=== PATIENT | male | born 1950 | race Caucasian/White ===

== ENCOUNTER → 2018-02-11 10:19 | Outpatient (CLI) | payer MEDICARE, SELFPAY ==
[2018-02-11 12:42] LABS: ALB/GLOB Ratio 1.2 RATIO (0.9-2.4); AST(SGOT) 30 U/L (15-37); Alanine Aminotransfer ALT/SGPT 36 U/L (16-61); Albumin, Serum 3.8 g/dL (3.2-5.0); Alkaline Phosphatase 54 U/L (45-117); Anion Gap 5 (5-15); BUN 24 mg/dL (7-18); BUN/Creat Ratio 40.8 RATIO (10-20); Calcium,Total 8.6 mg/dL (8.5-10.1); Chloride 109 mmol/L (98-107); Creatinine, Serum 0.59 mg/dL (0.70-1.30); EST Glomerular Filtration Rate 146 mL/min (>60); Est Glom Filt Rate - Afr Amer 176 mL/min (>60); Globulin 3.3 g/dL (2.2-4.2); Glucose 86 mg/dL (74-106); Potassium 3.4 mmol/L (3.5-5.1); Protein, Total 7.1 g/dL (6.4-8.2); Sodium Level 144 mmol/L (136-145)
== END ==
PROVIDERS: Family Provider Family Medicine; PCP Family Medicine; Visit Provider Family Medicine
DX: I10 Essential (primary) hypertension (principal); M81.0 Age-related osteoporosis without current pathological fracture
CPT/HCPCS: 36415; 80053; 82306

== ENCOUNTER → 2018-02-17 10:40 | Outpatient (CLI) | payer MEDICARE, SELFPAY ==
--- NOTE | 2018-02-17 10:50 | BD_ITS ---
STUDY: DUAL ENERGY X-RAY ABSORPTIOMETRY / DXA REASON FOR EXAM: Male, 67 years old. History of prostate cancer. TECHNIQUE: Bone Mineral Density (BMD) measurements of lumbar spine and bilateral hips were obtained. COMPARISON: None. FINDINGS: Lumbar Spine (L1-L4): g/cm2 (0.946) / T-score (-2.5) / Z-score (-2.0) Findings are suggestive of osteoporosis with a high fracture risk. Left Femur Total: g/cm2 (0.522) / T-score (-4.0) / Z-score (-3.4) Left Femoral Neck: g/cm2 (0.566) / T-score (-3.9) / Z-score (-2.7) Right Femur Total: g/cm2 (0.512) / T-score (-4.1) / Z-score (-3.4) Right Femoral Neck: g/cm2 (0.52 6) / T-score (-4.2) / Z-score (-3.0) BD/Dexa Bone Density Study IMPRESSION: The patient is considered osteoporotic as outlined below according to World [employer] Organization (WHO) criteria with a high fracture risk. Reference Information: The T-score is the number of standard deviations above or below the standard which is normal for young adults at their peak bone mineral density. The World Health Organization (WHO) interprets the T-scores as follows: Above -1 Normal bone density Between -1 and -2.5 Osteopenia Equal to / or below -2.5 Osteoporosis As a practical clinical guideline, osteopenia may be graded as follows: Mild -1 through -1.5 Moderate -1.6 through -2.0 Severe -2.1 through -2.4 The Z-score is the number of standard deviations above or below age-matched controls. A Z-score of less than -1.5 would be considered abnormal. References: 1. NIH Osteoporosis and Related Bone Diseases http://www.osteo.org 2. International Society for Clinical Densitometry http://www.iscd.org 3. National Osteoporosis Foundation http://www.nof.org Electronically Signed: Michael Perez MD at 13:26 EDT Tel [phone], Service support ,
== END ==
PROVIDERS: Family Provider Family Medicine; PCP Family Medicine; Visit Provider Family Medicine
DX: M81.0 Age-related osteoporosis without current pathological fracture (principal); Z85.46 Personal history of malignant neoplasm of prostate
CPT/HCPCS: 77080

== ENCOUNTER → 2018-08-31 09:08 | Outpatient (CLI) | payer MEDICARE, SELFPAY ==
[2018-08-25 11:10] VITALS: BMI 21.9
[2018-08-31 13:01] LABS: Vitamin D,25 Hydroxy 56.7 ng/mL (29.95-100.01)
== END ==
PROVIDERS: Family Provider Family Medicine; PCP Family Medicine; Referring Provider Family Medicine; Visit Provider Family Medicine
DX: M81.0 Age-related osteoporosis without current pathological fracture (principal)
CPT/HCPCS: 36415; 82306

== ENCOUNTER 2018-10-20 06:51 | Day surgery (SDC) | payer MEDICARE, SELFPAY ==
[2018-08-25 11:10] VITALS: BMI 21.9
[2018-10-20 07:16] VITALS: BP 136/88; PULSE 90; RESP 16; TEMP 37.4; O2SAT 96; BMI 21.2
--- NOTE | 2018-10-20 08:18 | H&P.OPEN ---
History of Present Illness Date of Admission: 10/20/18 The patient is a 68 year old M here for screening colonoscopy. The patient reports that he has never had a colonoscopy in the past. He denies any weight loss or abdominal pain. He denies any blood in his stool. Past Medical/Surgical History - Planned Operation Planned Operative Procedure/s: cscope open access Date of Operative Procedure: 10/20/18 Permit Signed: No S.O.S: No Is This Patient Having a Total Joint: No - Previous Hospitalizations/Surgeries HX Hospitalizations: No HX of Surgeries: polio as child. bilat ankle stabalization as child. appendectomy. prostatectomy for cancer Any Problems With Anesthesia: No You/Your Family Experience Fever (Hyperthermia) With Anes: No Cholinesterase deficiency: No - Cardiovascular Hx Chest Pain within Last 2 months: No Hx of Irregular Heartbeat and/or Afib: No Hx Heart Attack: No Hx Congestive Heart Failure: No Hx Rheumatic Fever: No Hx Hypertension: Yes - controlled with med Hx Internal Defibrillator: No Hx Pacemaker: No Hx Cardiac Catheterization: No Hx Cardiac Surgery/Stents/Etc.: No Hx Stress Test: No HX Edema: Yes - ankles Hx Pain in Legs when Walking/Leg Cramps: Yes - Respiratory Chronic Cough: No HX of Shortness of Breath: No - unable to walk stairs/denies sob with exertion Hoarseness: No Hx Chronic Obstructive Pulmonary Disease (COPD): No Hx Asthma: No Hx Emphysema: No Hx Sleep Apnea: No Hx Oxygen Use at Home: No Hx Respiratory Tract Infection/Cold (presently): No Do You Snore Loudly (louder than talking or can be heard): Yes Do You Often Feel Tired/ Fatigued/ Sleepy Dring Daytime?: No Has Anyone Observed You Stop Breathing During Sleep?: Yes Result (for STOP score): Positive Hx Smoking: No Smoking Status: Never smoker - Gastrointestinal Hx Gastroesophageal Reflux: Yes Controlled With Meds: No - no meds Hx Gastrointestinal Disorders: No Hx Gastrointestinal Bleed: No Hx Ulcer: No Hx Hiatal Hernia: Yes Difficulty Chewing/Swallowing: No Recent Onset of Swallowing Problems: No Special diet followed at home: No Hx Unplanned Weight Loss of 20#: No HX Unplanned Weight Gain of 20#: No - Neurological Hx Seizures: No HX Syncope/Blackout Spells/Unconsciousness: Yes - syncope at times Hx CVA/Stroke: No Hx Transient Ischemic Attacks (TIA): No Hx Multiple Sclerosis: No - polio as child Hx Parkinson's Disease: No Hx Head/Neck Injury: No Hx Headaches: No Hx Back Injury/Pain: Yes - occ lower back pain Recent Onset of Speech Difficulty: No Restless Legs: No Does patient have nerve stimulator: No Patient instructed to have device shut off: No Rep notified?: No - Blood Disorder Hx Leukemia: No Bleeding Tendencies: Yes - easy bruising Hx Deep Vein Thrombosis: No Hx High Cholesterol: No Blood Transmitted Disease: No Hx Hepatitis: No Hx Cirrhosis: No Hx Anemia: No Hx Blood Disorders: No - Genitourinary Hx Renal Disease: No - hx prostate ca/prostatectomy - Musculoskeletal Hx Arthritis: Yes Hx Rheumatoid Arthritis: No Hx Gout: No Recent Onset of an Orthopedic Problem: No - Endocrine Hx Diabetes: No Thyroid Disease: No Hx Steroid Therapy: No - Psycho/Social Hx Substance Use: No Hx Alcohol Use: No Hx Anxiety: No Hx Depression: No Mental Illness: No Hx Dementia: No - Miscellaneous Hx Cancer: Yes - prostate Recent Exposure to Contagious Disease: No Active MRSA: No Hx of C-Diff: No Any Loose Teeth: No Allergies penicillin G Allergy (Severe, Verified 10/16/18 09:34) hives pentazocine [From Talwin] Adverse Reaction (Severe, Verified 10/16/18 09:34) dizziness - Discharge Is Pt Admitted From a Fpc, or a Assisted: No Who Could Help: Special Equipment Used at Home: walker After D/C, Where Do you Plan to Go: Return Home - From the PAT History Number of Risk Factors: 3 - Physical Exam General: Alert, Oriented x3 Lungs: Normal air movement Cardiovascular: Regular rate, Regular Rhythm Abdomen: Soft, Non Tender, Non-Distended Vital Signs Temp Pulse Resp BP Pulse Ox 99.4 F H 90 16 136/88 H 96 10/20/18 07:16 10/20/18 07:16 10/20/18 07:16 10/20/18 07:16 10/20/18 07:16 Oxygen Delivery Method Room Air Weight: 119 lb 14.903 oz Body Mass Index (BMI) 21.2 Assessment/Plan All Active Problems (Last Reviewed 08/25/18 @ 12:19 by Jamar Chance DO) History of prostate cancer (Acute) 68-year-old male for screening colonoscopy 1. I explained endoscopy in detail to the patient. I explained the risks including but not limited to stroke or heart attack with anesthesia, perforation of the GI tract, bleeding, infection. I explained that any of these could necessitate further emergency surgery. The patient understands and all questions were answered sufficiently. The patient wishes to proceed with procedure. Rodrigo Florez MD Pager: [facility] [address] [place] [address] [address] [place] [address] Office: Surgery Risks - Colonoscopy Risks Include but are not Limited To: Risks include but are not limited to: Bleeding, perforation requiring further surgery, inability to complete colonoscopy requiring barium enema.
[2018-10-20 08:21] VITALS: BP 121/78; BP 136/88; PULSE 74; RESP 18; TEMP 36.3; O2SAT 97
[2018-10-20 08:25] VITALS: BP 130/82; BP 136/88; PULSE 79; RESP 16; O2SAT 98
--- NOTE | 2018-10-20 08:25 | OP.ENDO_ITS ---
Patient Name: Yony Amin Procedure Date: 10/20/2018 7:33 AM Date of : 1950 Age: 68 Procedure: Colonoscopy Indications: Screening for colorectal malignant neoplasm Providers: Rodrigo Florez MD Referring MD: Jamar Chance Medicines: Monitored Anesthesia Care Patient Profile: This is a 68 year old male. Refer to note in patient chart for documentation of history and physical. Last Colonoscopy: none. The patient's first colonoscopy is today. Complications: No immediate complications. Procedure: Pre-Anesthesia Assessment: - Prior to the procedure, a History and Physical was performed, and patient medications and allergies were reviewed. The patient's tolerance of previous anesthesia was also reviewed. The risks and benefits of the procedure and the sedation options and risks were discussed with the patient. All questions were answered, and informed consent was obtained. Prior Anticoagulants: The patient has taken no previous anticoagulant or antiplatelet agents. After reviewing the risks and benefits, the patient was deemed in satisfactory condition to undergo the procedure. After I obtained informed consent, the scope was passed under direct vision. Throughout the procedure, the patient's blood pressure, pulse, and oxygen saturations were monitored continuously. The colonoscope was introduced through the anus and advanced to the cecum, identified by appendiceal orifice and ileocecal valve. The colonoscopy was performed without difficulty. The patient tolerated the procedure well. The quality of the bowel preparation was good. Scope In: 7:58:46 AM Scope Withdrawal Time 0 hours 6 minutes 5 seconds Scope Out: 8:17:37 AM Total Procedure Duration Time 0 hours 18 minutes 51 seconds Findings: Multiple small-mouthed diverticula were found in the left colon. The exam was otherwise without abnormality on direct and retroflexion views. Impression: - Diverticulosis in the left colon. - The examination was otherwise normal on direct and retroflexion views. - No specimens collected. Recommendation: - Discharge patient to home. - Resume previous diet. - Continue present medications. - Repeat colonoscopy is not recommended due to current age (66 years or older) for screening purposes. Procedure Code(s): --- Professional --- G0121, Colorectal cancer screening; colonoscopy on individual not meeting criteria for high risk Diagnosis Code(s): --- Professional --- Z12.11, Encounter for screening for malignant neoplasm of colon K57.30, Diverticulosis of large intestine without perforation or abscess without bleeding CPT copyright 2017 [employer]. All rights reserved. The codes documented in this report are preliminary and upon certified medical records coder review may be revised to meet current compliance requirements. Rodrigo Florez MD 10/20/2018 8:25:15 AM This report has been signed electronically. Number of Addenda: 0 Note Initiated On: 10/20/2018 7:33 AM
[2018-10-20 08:30] VITALS: BP 129/86; BP 136/88; PULSE 76; RESP 16; O2SAT 99
[2018-10-20 08:31] VITALS: BP 135/88; BP 136/88; PULSE 74; RESP 16; TEMP 36.2; O2SAT 98
[2018-10-20 08:52] VITALS: BP 136/88
== END 2018-10-20 09:22 | disposition home or self-care (01) ==
LOC: EN 06:51 → AC 06:53
PROVIDERS: Family Provider Family Medicine; PCP Family Medicine; Referring Provider Family Medicine; Visit Provider Surgery
PROC: 0DJD8ZZ Inspection of Lower Intestinal Tract, Via Natural or Artificial Opening Endoscopic (ICD-10-PCS; CPT 45378; principal; 2018-10-20 07:55)
DX: Z12.11 Encounter for screening for malignant neoplasm of colon (principal); K57.30 Diverticulosis of large intestine without perforation or abscess without bleeding; Z85.46 Personal history of malignant neoplasm of prostate; I10 Essential (primary) hypertension
CPT/HCPCS: G0121; J7120

== ENCOUNTER → 2019-03-02 09:00 | Outpatient (CLI) | payer MEDICARE, SELFPAY ==
[2019-03-02 08:39] VITALS: BMI 21.2
[2019-03-02 13:24] LABS: Anion Gap 6 (5-15); BUN 21 mg/dL (7-18); BUN/Creat Ratio 32.9 RATIO (10-20); Calcium,Total 8.8 mg/dL (8.5-10.1); Chloride 107 mmol/L (98-107); Creatinine, Serum 0.64 mg/dL (0.70-1.30); EST Glomerular Filtration Rate 132 mL/min (>60); Est Glom Filt Rate - Afr Amer 160 mL/min (>60); Glucose 95 mg/dL (74-106); Potassium 3.5 mmol/L (3.5-5.1); Sodium Level 140 mmol/L (136-145)
== END ==
PROVIDERS: PCP Family Medicine; Visit Provider Family Medicine
DX: I10 Essential (primary) hypertension (principal)
CPT/HCPCS: 36415; 80048

== ENCOUNTER 2019-04-28 18:16 | Emergency (ER) | payer MEDICARE, SELFPAY ==
[2019-04-21 08:46] VITALS: BMI 21.2
[2019-04-28 18:17] VITALS: BP 150/89; PULSE 68; RESP 18; TEMP 36.8; O2SAT 97; BMI 23.4
--- NOTE | 2019-04-28 18:45 | RAD_ITS ---
STUDY: X-RAY - RIGHT KNEE REASON FOR EXAM: Male, 68 years old. Bilateral knee pain after fall. History of polio. TECHNIQUE: 4 view(s) of the knee. COMPARISON: None. FINDINGS: There is generalized osteopenia. Normal visualized distal femur. Normal visualized proximal tibia and fibula. Normal proximal tibiofibular articulation. There is no acute fracture, dislocation or destructive osseous pathology. There is mild degenerative arthrosis of the medial femorotibial compartment. Normal lateral femorotibial compartment. There is mild degenerative arthrosis of the patellofemoral articulation. There is no demonstrated joint effusion. The soft tissue structures are unremarkable. RAD/Knee 4 or More Views IMPRESSION: Osteopenia and degenerative changes of the right knee. Electronically Signed: Nikolas Isaac DO at 19:52 EDT Tel [phone], Service support ,
--- NOTE | 2019-04-28 18:45 | CT_ITS ---
STUDY: CT BRAIN WITHOUT CONTRAST REASON FOR EXAM: Male, 68 years old. Fall. Injury to back of head. Neck pain. Patient on daily aspirin. RADIATION DOSAGE (If Supplied By Facility): CTDIvol = ( 44.99 ) mGy, DLP = ( 745.49 ) mGycm TECHNIQUE: Transaxial CT imaging of the brain was performed without administration of intravenous contrast material. Individualized dose optimization techniques were used for this CT. COMPARISON: No relevant priors. FINDINGS: Normal soft tissue structures. Normal calvarium. Normal size ventricles and extra-axial spaces for the patient's age. Normal white matter tracts of the cerebral hemispheres. Normal basal ganglia and thalami. Normal brainstem. Normal cerebellum. There is no intracranial hemorrhage. There are no findings of an acute ischemic infarction. Normal visualized paranasal sinuses. CT/Brain/Head without Contrast IMPRESSION: No acute intracranial or calvarial abnormality. Electronically Signed: Nikolas Isaac DO at 19:31 EDT Tel [phone], Service support ,
--- NOTE | 2019-04-28 18:45 | CT_ITS ---
STUDY: CT CERVICAL SPINE WITHOUT CONTRAST REASON FOR EXAM: Male, 68 years old. Fall. Hit back of head. Neck pain. RADIATION DOSAGE (If Supplied By Facility): CTDIvol = ( 17.13 ) mGy, DLP = ( 345.41 ) mGycm TECHNIQUE: High resolution transaxial imaging was performed without contrast material. Sagittal and coronal images were reconstructed. Individualized dose optimization techniques were used for this CT. COMPARISON: None FINDINGS: Normal craniovertebral junction. There are degenerative changes of the anterior atlantoaxial articulation. Normal odontoid process. There is reversal of the normal cervical lordosis. Normal vertebral bodies and posterior osseous elements. C2-3: Normal endplates. Minimal loss of disc height. Mild facet and uncovertebral joint degenerative change. Normal central canal and intervertebral neuroforamina. C3-4: Loss of disc height with endplate spondylosis. Facet and uncovertebral joint degenerative change. Normal central canal. There is narrowing of the bilateral intervertebral neuroforamina, left greater than right. C4-5: Minimal endplate spondylosis. Normal disc height and morphology. Normal central canal and intervertebral neuroforamina. C5-6: Loss of disc height with endplate spondylosis Normal central canal and intervertebral neuroforamina. C6-7: Loss of disc height with endplate spondylosis. There is facet and uncovertebral joint degenerative change. Stenosis of the central canal. Narrowing of the lateral intervertebral neuroforamen. C7-T1: Loss of disc height with endplate spondylosis. Facet and uncovertebral joint degenerative change. Normal central canal period narrowing of the bilateral intervertebral neuroforamina, right greater than left. Normal visualized soft tissue structures. CT/Spine Cervical without Contras IMPRESSION: Reversal of the cervical lordosis with degenerative changes of the cervical spine. There is no acute fracture or subluxation. Electronically Signed: Nikolas Isaac DO at 19:37 EDT Tel [phone], Service support ,
--- NOTE | 2019-04-28 18:49 | RAD_ITS ---
STUDY: X-RAY - LEFT ANKLE REASON FOR EXAM: Male, 68 years old. Bilateral ankle pain after fall. History of polio. TECHNIQUE: 3 view(s) of the ankle. COMPARISON: None. FINDINGS: Generalized osteopenia. Normal visualized distal tibia and fibula. Normal medial and lateral malleoli. Is arthrosis of the tibiotalar articulation and ankle mortise. Normal visualized talus and calcaneus. There is apparent fusion of the subtalar articulation. Arthrosis of the, talonavicular, calcaneocuboid and tarsal articulations. There is a pes planus deformity. The soft tissue structures are unremarkable. RAD/Ankle min 3 Views IMPRESSION: Osteopenia and degenerative changes of the ankle and hind foot. Electronically Signed: Nikolas Isaac DO at 19:53 EDT Tel [phone], Service support ,
--- NOTE | 2019-04-28 18:49 | RAD_ITS ---
STUDY: X-RAY - LEFT KNEE REASON FOR EXAM: Male, 68 years old. Bilateral knee pain after fall. History of polio. TECHNIQUE: 5 view(s) of the knee. COMPARISON: None. FINDINGS: There is diffuse osteopenia. Normal visualized distal femur. Normal visualized proximal tibia and fibula. Normal proximal tibiofibular articulation. There is no acute fracture, dislocation or destructive osseous pathology. There is mild degenerative arthrosis of the medial femorotibial compartment. Normal lateral femorotibial compartment. There is mild degenerative arthrosis of the patellofemoral articulation. There is no demonstrated joint effusion. The soft tissue structures are unremarkable. RAD/Knee 4 or More Views IMPRESSION: Osteopenia and mild degenerative changes of the left knee. Electronically Signed: Nikolas Isaac DO at 19:51 EDT Tel [phone], Service support ,
[2019-04-28] MEDS: Ibuprofen 600 MG Tablet PO (19:04)
--- NOTE | 2019-04-28 19:20 | RAD_ITS ---
STUDY: X-RAY - RIGHT ANKLE REASON FOR EXAM: Male, 68 years old. Bilateral ankle pain after fall. History of polio. TECHNIQUE: 3 view(s) of the ankle. COMPARISON: None. FINDINGS: There is marked generalized osteopenia. Normal visualized distal tibia. There is a small bony projection off the distal fibular diametaphysis which may represent site of old fracture. Normal medial and lateral malleoli. There is arthrosis of the tibiotalar articulation and ankle mortise. Normal visualized talus and calcaneus. Question fusion of the subtalar articulation There is mild arthrosis of the talonavicular, calcaneocuboid and tarsal articulations are normal. There is pes planus deformity. There is diffuse soft tissue swelling about the lower leg and ankle RAD/Ankle min 3 Views IMPRESSION: Osteopenia and degenerative changes of the ankle and hindfoot. There is no visualized fracture or dislocation. Electronically Signed: Nikolas Isaac DO at 19:50 EDT Tel [phone], Service support ,
--- NOTE | 2019-04-28 20:32 | ED.VISSUMM ---
- ER Visit Summary Date of Service: 04/28/19 Chief Complaint: Fall History of Present Illness: The patient is a 68 M who fell earlier today off of a stool. He complains of head and neck pain. He also bent his knees and ankles. He has post polio syndrome. History of osteopenia. Denies any other associated symptoms, vision changes, neurologic changes, nausea, vomiting, bleeding. He takes aspirin but no other blood thinners. Physical Examination: Afebrile and vital signs are unremarkable. He has a very small hematoma to his right occipital region. Otherwise head is atraumatic. Neck is diffusely tender over the upper cervical spine and occipital region. Heart regular. Lungs clear. Abdomen soft. Upper extremities atraumatic. Bilateral knees and ankles diffusely tender. No deformity. Good range of motion. Neurovascular intact distally. Test Results: CT brain and cervical spine showed chronic changes. Nothing acute. No fracture or bleeding. X-rays of the ankles and knees were also unremarkable. They showed osteopenia and chronic changes. Nothing acute. Emergency Department Course and Treatment: Patient treated with Motrin at his request. His imaging was unremarkable. Patient will be discharged home. He is hcyl-[id number] remedies for pain. Return for any new or worsening issues. Follow-up with PCP. Treatment Plan: As above Disposition: Discharge Impression: 1. Closed head injury 2. Bilateral ankle pain 3. Bilateral knee pain This note was generated with [employer] software. It may contain incorrect words, spelling, and punctuation that were not noted in review of the chart prior to signing ED Disposition - Plan for ED Patient: Referrals: Jamar Chance DO [Primary Care Provider] -
--- NOTE | 2019-04-28 20:34 | ED.DEP ---
ED Disposition - Plan for ED Patient: Instructions: FALL, Mechanical Referrals: Jamar Chance DO [Primary Care Provider] -
[2019-04-28 20:52] VITALS: BP 136/68; PULSE 68; RESP 18; O2SAT 98
== END 2019-04-28 20:53 | disposition home or self-care (01) ==
LOC: ED 19:10
PROVIDERS: Emergency Provider Emergency Medicine; Family Provider Family Medicine; PCP Family Medicine
DX: S09.90XA Unspecified injury of head, initial encounter (principal); W19.XXXA Unspecified fall, initial encounter; M85.80 Other specified disorders of bone density and structure, unspecified site; M25.572 Pain in left ankle and joints of left foot; M25.571 Pain in right ankle and joints of right foot; M25.561 Pain in right knee; M25.562 Pain in left knee; G14 Postpolio syndrome; Z79.82 Long term (current) use of aspirin; I10 Essential (primary) hypertension
CPT/HCPCS: 70450; 72125; 73564; 73610; 99283

== ENCOUNTER 2019-05-21 13:43 | Emergency (ER) | payer MEDICARE, SELFPAY ==
[2019-05-05 09:26] VITALS: BMI 23.4
[2019-05-21 13:43] VITALS: BP 150/93; PULSE 66; RESP 12; TEMP 36.7; O2SAT 97; BMI 23.2
--- NOTE | 2019-05-21 15:03 | RAD_ITS ---
STUDY: X-RAY - RIGHT ANKLE REASON FOR EXAM: Male, 68 years old. Pain and swelling after falling and twisting ankle. History of polio as a child. TECHNIQUE: 3 view(s) of the ankle. COMPARISON: Prior right ankle and April 28, 2019 FINDINGS: The demineralized osseous structures without acute fracture deformity. There are cortical changes of the distal fibula and tibia consistent with prior healed fracture deformities. Mild degenerative narrowing of the tibiotalar articulation. Flat foot/pes planus. Possible ankylosis or extreme narrowing of the subtalar joint. Generalized soft tissue swelling. RAD/Ankle min 3 Views IMPRESSION: Generalized soft tissue swelling without acute fracture deformity. Minor deformities of the distal fibula and tibia which are most likely secondary to prior fracture deformity. Pes planus. Ankylosis or extreme narrowing of the subtalar articulation. No substantial changes from prior exam. Electronically Signed: Christine Moore MD at 16:55 EDT , Service support ,
--- NOTE | 2019-05-21 15:03 | CT_ITS ---
STUDY: CT BRAIN WITHOUT CONTRAST REASON FOR EXAM: Male, 68 years old. History of fall. RADIATION DOSAGE (If Supplied By Facility): CTDIvol = ( 44.99 ) mGy, DLP = ( 745.49 ) mGycm TECHNIQUE: Transaxial CT imaging of the brain was performed without administration of intravenous contrast material. Individualized dose optimization techniques were used for this CT. COMPARISON: Comparison is made with prior study dated April 28, 2019. FINDINGS: Normal soft tissue structures. Normal calvarium. There is mild cerebral atrophy with widening of the extra-axial spaces and ventricular dilatation. Normal white matter tracts of the cerebral hemispheres. Normal basal ganglia and thalami. Normal brainstem. Normal cerebellum. There is no intracranial hemorrhage. There are no findings of an acute ischemic infarction. Atherosclerotic calcification of the cavernous portions of the internal carotid arteries bilaterally as well as the vertebral arteries. Normal visualized paranasal sinuses. CT/Brain/Head without Contrast IMPRESSION: Chronic involutional changes of the brain. Electronically Signed: Michael Perez, at 15:47 EDT , Service support ,
--- NOTE | 2019-05-21 15:03 | CT_ITS ---
STUDY: CT CERVICAL SPINE WITHOUT CONTRAST REASON FOR EXAM: Male, 68 years old. History of fall. RADIATION DOSAGE (If Supplied By Facility): CTDIvol = ( 10.78 ) mGy, DLP = ( 210.83 ) mGycm TECHNIQUE: High resolution transaxial imaging was performed without contrast material. Sagittal and coronal images were reconstructed. Individualized dose optimization techniques were used for this CT. COMPARISON: Comparison is made with prior study dated April 28, 2019. FINDINGS: Normal craniovertebral junction. Normal anterior atlantoaxial articulation. Normal odontoid process. Normal cervical lordosis. Normal vertebral bodies and posterior osseous elements. C2-3: Normal endplates. Normal disc height and morphology. Normal central canal and intervertebral neuroforamina. C3-4: Moderate degree of disc space narrowing with posterior spondylosis worse anteriorly. Uncovertebral arthrosis. Bilateral neural foraminal stenosis worse on the left side. C4-5: Minimal anterior listhesis of C4 on C5. Mild degree of disc space narrowing with spondylosis. Mild degree of bilateral neural foraminal stenosis. C5-6: Moderate degree of disc space narrowing with spondylosis. C6-7: Marked degree of disc space narrowing with spondylosis. Uncovertebral arthrosis. Moderate degree of bilateral neural foraminal stenosis. C7-T1: Disc space narrowing. Facet joint osteoarthritis. Uncovertebral arthrosis. Bilateral neural foraminal stenosis. Normal visualized soft tissue structures. CT/Spine Cervical without Contras IMPRESSION: Multilevel degenerative changes, as described above. Electronically Signed: Michael Perez, at 15:49 EDT , Service support ,
--- NOTE | 2019-05-21 15:03 | RAD_ITS ---
STUDY: X-RAY - RIGHT KNEE REASON FOR EXAM: Male, 68 years old. Posterior pain of the knee after falling. History of polio. TECHNIQUE: 5 view(s) of the knee. COMPARISON: Prior right knee exam of April 28, 2019 FINDINGS: Demineralized osseous structures without fracture deformity. Normal medial femorotibial compartment. Normal lateral femorotibial compartment. There is mild degenerative arthrosis of the patellofemoral articulation. There is a soft tissue prominence in the suprapatellar region suggesting a small volume joint effusion. Atrophic muscular structures. RAD/Knee 4 or More Views IMPRESSION: Small volume joint effusion. Demineralized osseous structures without fracture deformity. Mild degenerative changes of the patellofemoral compartment. Generalized muscular atrophy. Electronically Signed: Christine Moore MD at 16:51 EDT , Service support ,
--- NOTE | 2019-05-21 15:21 | ED.DCSUM_ITS ---
- ER Visit Summary Date of Service: 05/21/19 Chief Complaint: Fall History of Present Illness: The patient is a 68 M who presents with a fall that occurred today. Patient states his leg gave out and he fell. Patient has a history of polio. Patient states he had a similar fall 3 weeks ago. Patient did hit the back of his head. Patient complains of pain in his right knee, right ankle, occiput, and neck. Patient describes the pain as sharp in his knee and ankle and dull ache in his head and neck. Patient denies any loss of consciousness. Patient denies any new weakness. Patient admits to some tingling in his right foot. Physical Examination: Vital signs are stable. Patient is afebrile. Patient is in no acute distress. Cranial nerves II through XII are intact. Strength is equal bilaterally in the upper and lower extremities. There are no sensory deficits noted. Pedal pulses are equal bilaterally. Radial pulses are equal bilateral. Musculoskeletal exam reveals tenderness over the right knee. There is no effusion. There is no deformity noted. There is good range of motion. There is no laxity appreciated. There is also tenderness of the anterior aspect of the right ankle. There is also mild tenderness on the medial malleolus. There is no bony crepitance or step-off. There is some mild edema. There is no ecchymosis. There is no deformity noted. There is good range of motion. There is also tenderness over the right cervical paraspinal muscles. There is some mild midline tenderness. There is no bony crepitance or step-off. There is some mild tenderness of the right occipital area. There is no bony crepitance or step-off. Patient states there is slight edema. There is no ecchymosis. Heart was regular rate and rhythm. Lungs are clear and equal bilaterally. Abdomen is soft nontender. Test Results: X-rays of the right knee and right ankle were obtained. There are no acute fractures noted. CT scan of the brain and cervical spine were obtained. There is no acute intracranial abnormality or acute cervical spine injury. Emergency Department Course and Treatment: Patient was instructed to follow-up with his primary care physician in 5 to 7 days. Patient was instructed to walk with his walker. Patient and family understood and were agreeable with the plan. All questions were answered. Disposition: Discharge home Impression: 1. Right knee contusion 2. Right ankle sprain 3. Closed head injury 4. Acute cervical strain This note was generated with [employer] dictation software. It may contain incorrect words, spelling, and punctuation that were not noted in review of the chart prior to signing ED Disposition - Plan for ED Patient: Disposition: Home or Assisted Living Diagnosis: Contusion of right knee, initial encounter, Right ankle sprain, Closed head injury, Acute cervical myofascial strain, Post-polio syndrome Instructions: Fall Prevention, Sprain, Ankle, with X-Ray, HEAD INJURY, No Wake- Up (Adult), Neck Sprain/Strain Referrals: Jamar Chance, [Primary Care Provider] - 5-7 Days
[2019-05-21 17:32] VITALS: BP 142/90; PULSE 66; RESP 15; O2SAT 96
== END 2019-05-21 17:33 | disposition home or self-care (01) ==
PROVIDERS: Emergency Provider Emergency Medicine; Family Provider Family Medicine; PCP Family Medicine
DX: S09.90XA Unspecified injury of head, initial encounter (principal); S16.1XXA Strain of muscle, fascia and tendon at neck level, initial encounter; S80.01XA Contusion of right knee, initial encounter; S93.401A Sprain of unspecified ligament of right ankle, initial encounter; W18.30XA Fall on same level, unspecified, initial encounter; Z86.12 Personal history of poliomyelitis; I10 Essential (primary) hypertension
CPT/HCPCS: 70450; 72125; 73564; 73610; 97110; 99282

== ENCOUNTER 2019-07-15 10:00 | Outpatient (RCR) | payer MEDICARE, SELFPAY ==
[2019-05-05 09:26] VITALS: BMI 23.4
--- NOTE | 2019-05-06 14:03 | HP.PTEVAL_ITS ---
Patient's Visit Information OSCAR HARGROVE is a 68 year old M referred to Physical Therapy by CHRISTY Oropeza with a diagnosis of post polio syndrome. Date of Evaluation: 05/06/19 Physical Therapist: Mando Pinto, PT, ATC - Visit Plan Frequency: 2x /Week Duration: 4-6 Weeks Plan: B LE strengthening, balance and proprio, core strengthening, nustep, and HEP - Subjective Findings: Pt reports he is losing function in his legs secondary to having post polio syndrome. Pt reports his balance is worsening and he is starting to have more difficulty with driving. Pt reports he fell last week and has sore knees as a resut. Pt reports this was the first fall since 2011 which resulted in a tib- fib Fx. Pt reports he is here today so he can hopefully begin to strengthen his LE's and improve his balance. Pt reports his L LE was affected much worse from the polio. Pt reports he has good feeling in his legs. Pt has stairs at home that he negotiates one step at a time. Pt reports he has no pain this date. - Objective Neuro: B LE sensation is WNL to light touch. B patellar reflex= 1/3. MMT: L hip flex and knee flex= 4-/5. R knee ext= 3/5. All other B LE meausrements 2-/5. Gait: Pt is able to ambulate approximately 186 feet until needing to sit down and rest. Balance: Pt is unable to stand and balance with no UE support for greater than 2 seconds - Goals Goal 1:: Increase SDB x one grade to aid with preventing future falls Goal Time Frame: 4-6 Weeks Goal 2:: Increase B LE strength x 1 grade to aid with increasing antonio for ambulation Goal Time Frame: 4-6 Weeks Goal 3:: Pt will be able to ambulate greater than 600' in order to promote community ambulation Goal Time Frame: 4-6 Weeks Goal 4:: I with HEP Goal Time Frame: 4-6 Weeks - Rehabilitation Potential Physical Therapy Diagnosis: Pt has B LE weakness, decreased balance, and a Hx of falls secondary to post polio syndrome. Rehabilitation Potential: Good - Anticipated Interventions Patient/Client Instruction: Educate patient on: Condition, Plan of Care For the Purpose of:: To improve self management Therapeutic Exercise to Include: Strength training, Endurance training, Balance training, Gait and locomotor training, Dynamic Lumbar Stabilization For the Purpose of:: To improve muscle performance and motor function Thank you for the opportunity to evaluate your patient. For Medicare and Medicare HMO plans, please review the plan of care and approve it. It will need to be FAXED BACK to us at [phone] for Medicare purposes. For Medicare only, by signing this I certify the plan of care. Please let me know if there are questions or concerns regarding this plan of care. Physician Signature: Date:
--- NOTE | 2019-06-09 15:24 | HP.PTREVAL ---
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 Please see the progress note below for an update on the physical therapy plan of care! Subjective: Pt reports he is feeling better overall at this time Objective/Function: MMT:L hip flex= 4-/5. B hip abd and add= 4/5. R knee ext= 4-/5. All other B LE MMt 1/5. Gait: Pt is able to ambulate 340' with WW until needing to sit down and rest. Balance: Pt is able to March in place at this time showing a trend in improved balance. Pt is progressing well toward Rx goals. Plan Plan: B LE strengthening, balance and proprio, core strengthening, nustep, and HEP Goals Goal 1:: Increase SDB x one grade to aid with preventing future falls Goal Time Frame: 4-6 Weeks Goal Progress: Progressing Goal 2:: Increase B LE strength x 1 grade to aid with increasing antonio for ambulation Goal Time Frame: 4-6 Weeks Goal Progress: Progressing Goal 3:: Pt will be able to ambulate greater than 600' in order to promote community ambulation Goal Time Frame: 4-6 Weeks Goal Progress: Progressing Goal 4:: I with HEP Goal Time Frame: 4-6 Weeks Goal Progress: Progressing Anticipated Interventions Patient/Client Instruction: Educate patient on: Condition, Plan of Care For the Purpose of:: To improve self management Therapeutic Exercise to Include: Strength training, Endurance training, Balance training, Gait and locomotor training, Dynamic Lumbar Stabilization For the Purpose of:: To improve muscle performance and motor function Please do not hesitate to contact me at [phone] by phone or if you have questions or concerns regarding this new plan of care! Sincerely, Mando Pinto, PT, ATC
--- NOTE | 2019-07-15 10:33 | HP.PTDCSUM_ITS ---
HP - PT D/C Summary It has been my pleasure to treat OSCAR HARGROVE under orders from Johan Ibarra NP- C, for the diagnosis of post polio syndrome for a total of 16 visit(s). Discharge Date: Please see the following information for a summary of their discharge status. - Subjective Subjective: Pt feels he is ready to continue with ex's I - Pain L knee Pain Intensity (Out of 10): 0 - Overall Improvement % Improvement: 30 - Objective Objective/Function: Pt reports a 30% improvement with regards to balance. Pt reports no recent falls. MMT of the LE's has remained relatively unchanged ranging from 1-3/5 throughout. Pt is able to ambulate 340' with rollator until feeling fatigued and needing to rest. Pt is I with HEP. Pt has plataued at this time. - Goals Goal 1:: Increase SDB x one grade to aid with preventing future falls Goal Progress: Progressing Goal 2:: Increase B LE strength x 1 grade to aid with increasing antonio for ambulation Goal Progress: Not Progressing Goal 3:: Pt will be able to ambulate greater than 600' in order to promote community ambulation Goal Progress: Progressing Goal 4:: I with HEP Goal Progress: Goal Met - Plan Plan: Discontinue to HEP - D/C Information If there are questions or concerns regarding this patient's physical therapy, please feel free to call me at [phone]. Thank you for the referral of this patient. Sincerely, Mando Pinto, PT, ATC
== END 2019-07-15 15:44 | disposition home or self-care (01) ==
LOC: PT 10:00
PROVIDERS: Family Provider Family Medicine; PCP Family Medicine; Referring Provider Nurse Practitioner Family; Visit Provider Nurse Practitioner Family
DX: G14 Postpolio syndrome (principal); W19.XXXD Unspecified fall, subsequent encounter; R53.81 Other malaise
CPT/HCPCS: 97110; 97161; 97530

== ENCOUNTER 2019-08-29 19:47 | Emergency (ER) | payer MEDICARE, SELFPAY ==
[2019-08-29 19:48] VITALS: BP 145/77; PULSE 80; RESP 18; TEMP 37.2; O2SAT 96; BMI 24.9
--- NOTE | 2019-08-29 21:22 | CT_ITS ---
HISTORY: S/P FALL WITH NO LOC, C/O HEAD PAIN EXAMINATION: CT Head or Brain W/O Contrast Injection TECHNIQUE: Multiple axial images were obtained of the head without intravenous contrast. A radiation dose optimization technique was used for this scan. IV Contrast dosage and agent: None. COMPARISON: None FINDINGS: BRAIN PARENCHYMA: No intra- or extra-axial hemorrhage. No evidence of acute infarct. No intracranial mass or mass effect. There is preservation of the santoro/white matter interface. Posterior fossa structures are unremarkable. CSF SPACES: Appropriate for age. No hydrocephalus. Basal cisterns are patent. CALVARIUM, SKULL BASE, PARANASAL SINUSES AND MASTOID AIR CELLS: Clear. No discrete lytic or blastic abnormalities. ORBITS: Both globes, extraocular muscles, optic nerves and retrobulbar fat appear unremarkable. ASPECTS Score for Acute Strokes: 10 CT/Brain/Head without Contrast IMPRESSION: Negative Brain CT without contrast. Individualized dose optimization techniques were used for this CT. at 2214 Reported and signed by: Victor Hugo Cagle MD Electronically Signed: Victor Hugo Cagle MD at 22:13 EST Tel , Service support ,
--- NOTE | 2019-08-29 21:23 | RAD_ITS ---
HISTORY: FALL, PAIN COMPARISON: None FINDINGS: # of images incl. paperwork: 2 XR Spine Lumbar 2 views. Severe dextroscoliosis of the thoracolumbar spine with minimal compensatory levoscoliosis at the L4 L5-S1 levels. Vertebral body height appears to be fairly well preserved. There is tortuosity to the pelvis with twisting and. 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 Multiple surgical clips are present about the pelvis. Bowel gas pattern is normal. Facet arthropathy is present at most levels. RAD/Lumbar Spine 2 or 3 Views IMPRESSION: Scoliosis. Trauma, surgery, or a congenital abnormality to the left inferior pubic rami and the left ischial tuberosity. Surgical clips about the pelvis likely related to lymph node resection. at 2216 Reported and signed by: Victor Hugo Cagle MD Electronically Signed: Victor Hugo Cagle MD at 22:15 EST Tel , Service support ,
--- NOTE | 2019-08-29 21:23 | CT_ITS ---
HISTORY: S/P FALL WITH NO LOC, C/O HEAD PAIN TECHNIQUE: Helically acquired images were obtained of the cervical spine without contrast. 2D reformatted images were reviewed. A radiation dose optimization technique was used for this scan. COMPARISON: Most recent comparison CT scan of the cervical spine is from May 21, 2019 FINDINGS: # of images incl. paperwork: 412 Arthritis is present at the odontoid anterior arch of C1 articulation with bony remodeling and osteophytes Vertebral body height is fairly well-preserved. C3 C6 and C7 all demonstrate some mild degenerative loss of height which is similar to the previous study Degenerative malalignment is present. Disc degenerative malalignment is due to degenerative disc disease. Degenerative disc disease is greatest at theC6-C7 level. Large enthesophytes are present at many levels. This is unchanged. This disease is manifested by loss of disc height, endplate sclerosis, and anterior and posterior enthesophytes. Facets are well aligned with arthropathy. Prevertebral and paraspinal soft tissues are normal. No bones are fractured. Visualized portions of the mastoid air cells are free of disease. Pleural-parenchymal disease within the lung apices is similar to the previous study. CT/Spine Cervical without Contras IMPRESSION: Multilevel degenerative disc disease without acute fracture or traumatic subluxation. Individualized dose optimization techniques were used for this CT. at 2230 Reported and signed by: Victor Hugo Cagle MD Electronically Signed: Victor Hugo Cagle MD at 22:28 EST Tel , Service support ,
--- NOTE | 2019-08-29 21:23 | RAD_ITS ---
HISTORY: FALL, PAIN COMPARISON: None FINDINGS: # of images incl. paperwork: 2 XR Spine Thoracic 2 views: Thoracic vertebral bodies are normal in height. No acute thoracic spine fracture or subluxation. Levoscoliosis at the upper thoracic spine with a severe dextroscoliosis at the thoracolumbar junction. Multilevel degenerative disc disease with enthesophytes. Likely cardiomegaly. Lungs are clear. No effusions are perceived. Some Schmorl's node endplate fractures are present within the mid thoracic spine, perhaps at the T9-T10 T11-T12 levels. Some wedging to the T11-T12 and L1 vertebral bodies at the apex of the thoracolumbar scoliosis likely due to chronic degenerative change. RAD/Thoracic Spine 3 Views IMPRESSION: No acute thoracic spine fracture or subluxation. Severe scoliosis. at 9457 Reported and signed by: Victor Hugo Cagle MD Electronically Signed: Victor Hugo Cagle MD at 22:16 EST Tel , Service support ,
--- NOTE | 2019-08-29 22:00 | ED.DCSUM_ITS ---
History of Present Illness Chief Complaint: Fall Informant: Patient Occurred: Today Mechanism/Context: Slip Usually ambulates: Walker Location: head, neck, back Quality of Pain: Aching, Throbbing Narrative: Patient is a 69-year-old male with history of polio, prostate cancer and lower extremity weakness presenting after a fall. Patient states he was on his front porch cutting down the steps with his walker when his right knee gave out and he fell backwards. Patient fell backwards in his head. He did not have any loss of consciousness. He was unable to get himself back up. He notes that he has problems with his knee buckling and has had multiple falls. Patient uses a walker to ambulate at baseline. Patient is complaining of head and neck pain as well as back pain. He does have some pain of his knee as well. He denies any other injuries. He denies any new numbness or weakness of his lower extremities but notes that he chronically has weakness of his lower extremity subsequent to his polio. He states he was otherwise feeling well he woke up this morning. He denies any other complaints at this time. Past Medical History - Allergies and Home Meds Allergies/Adverse Reactions: Allergies penicillin G Allergy (Severe, Verified 05/21/19 13:48) hives pentazocine [From Talwin] Adverse Reaction (Severe, Verified 05/21/19 13:48) dizziness Primary Care Physician: Jamar Chance DO [Primary Care Provider] - Past Medical History: - - Polio, prostate cancer, scoliosis Surgical History: noncontributory Lives: With Family Smoking Status: Never smoker Review of Systems General: Denies: Chills, Fever, Sweats Eyes: Denies: Visual changes - bilaterally, Diplopia ENT: Denies: Rhinorrhea, Sore throat Cardiovascular: Denies: Chest pain, Palpitations Respiratory: Denies: Dyspnea, Cough, Dyspnea on exertion Gastrointestinal: Denies: Abdominal pain, Nausea, Vomiting, Diarrhea, Melena, Hematochezia Genitourinary: Denies: Dysuria, Hematuria, Frequency Musculoskeletal: Reports: Myalgias, Arthralgias, Neck pain, Back pain, Extremity Pain - Right knee Skin: Denies: Rash, Wounds Neurological: Denies: Headache, Weakness, Numbness Physical Exam Vital Signs/Narrative: Vital Signs Temp Pulse Resp BP Pulse Ox 08/29/19 19:48 98.9 F 80 18 145/77 H 96 Inital Vital Signs reviewed: Yes General: Well nourished, Well developed Head: Normocephalic, Atraumatic Eyes: Perrl, EOMI, - ENT: TM's clear, No hemotympanum or drainage, No trauma, - - No malocclusion. Negative for: Hemotympanum, Nasal trauma, Nasal septal hematoma Neck: Full ROM, Paraspinal Tenderness. Negative for: Spinal Tenderness Cardiovascular: Regular rate, Regular rhythm, No murmurs Respiratory: No distress, CTA bilaterally, Chest nontender Abdomen: Soft, Nontender, Nondistended, Normal bowel sounds Back: - - Diffuse tenderness palpation of the lower thoracic and upper lumbar region in the paraspinal as well as midline. Scoliosis is present. No step-off sign appreciated. Negative for: CVA Tenderness - Right, CVA Tenderness - Left Skin: Normal color, No rash Neurological: Alert, Oriented x3, Cranial nerves II-XII grossly intact, Normal Sensation, Weakness - Bilateral weakness with leg raise, chronic for patient. Patient has atrophy of his lower extremity muscles present. Left leg is shortened which patient also states is chronic. Mild prepatellar swelling of the right knee with normal range of motion. Mild erythema overlying the left knee with normal range of motion. Psychological: Normal affect Diagnostic/Tx/Re-eval Clinical Impression(s) from Imaging Studies Brain CT 08/29/19 21:22 IMPRESSION: Negative Brain CT without contrast. Individualized dose optimization techniques were used for this CT. at 4240 Reported and signed by: Victor Hugo Cagle MD Electronically Signed: Victor Hugo Cagle MD at 22:13 EST Tel , Service support , Cervical Spine CT 08/29/19 21:23 IMPRESSION: Multilevel degenerative disc disease without acute fracture or traumatic subluxation. Individualized dose optimization techniques were used for this CT. at 2230 Reported and signed by: Victor Hugo Cagle MD Electronically Signed: Victor Hugo Cagle MD at 22:28 EST Tel , Service support , Lumbar Spine X-Ray 08/29/19 21:23 IMPRESSION: Scoliosis. Trauma, surgery, or a congenital abnormality to the left inferior pubic rami and the left ischial tuberosity. Surgical clips about the pelvis likely related to lymph node resection. at 2216 Reported and signed by: Victor Hugo Cagle MD Electronically Signed: Victor Hugo Cagle MD at 22:15 EST Tel , Service support , Thoracic Spine X-Ray 08/29/19 21:23 IMPRESSION: No acute thoracic spine fracture or subluxation. Severe scoliosis. at 2217 Reported and signed by: Victor Hugo Cagle MD Electronically Signed: Victor Hugo Cagle MD at 22:16 EST Tel , Service support , - Medical Decision Making Patient is evaluated after mechanical fall. He states his knee felt like it locked up and he fell backwards. Because of patient's age head CT is obtained. This is grossly negative. Patient is Nexus positive and a C-spine CT is also obtained. Again this is grossly negative. Does show chronic arthritic changes. X-ray of the thoracic and lumbar spine obtained which did not show any acute fracture. Patient does have an incidental finding of an abnormal left pubic rami. Patient does not have any tenderness there. I suspect this is more of a congenital deficit and not an acute fracture. Patient is informed of this. Patient declines pain medication in the emergency room. He is able to ablate with a walker in the ER. He states he would like to go home. Patient does have some abnormality of neurologic exam but he insisted all of them are chronic for him. Patient is counseled on signs and symptoms requiring return to the emergency room. Patient verbalizes agreement and understand this plan. Patient discharged home in stable and improved condition. ED Disposition - Plan for ED Patient: Disposition: Home or Assisted Living Diagnosis: Fall, Neck pain, Back pain Instructions: FALL, Mechanical Referrals: Jamar Chance DO [Primary Care Provider] - Additional Instructions: Apply ice to the sore areas. Follow-up with your primary care doctor. Return to the emergency room if you have a hard time walking or develop any new/worse shamir symptoms. Please be very careful with using a walker to prevent further falls.
--- NOTE | 2019-08-29 22:58 | ED.RN ---
Dr. Gonzalez instructed to walk pt with walker. pt walked with walker to end of flores and back successfully. small, slow steps. c/o soreness in left knee. Dr. Gonzalez aware.
[2019-08-29 23:22] VITALS: BP 126/79; PULSE 64; RESP 16; O2SAT 95
== END 2019-08-29 23:23 | disposition home or self-care (01) ==
PROVIDERS: Emergency Provider Emergency Medicine; Family Provider Family Medicine; PCP Family Medicine
DX: M54.2 Cervicalgia (principal); M54.9 Dorsalgia, unspecified; M41.9 Scoliosis, unspecified; R29.6 Repeated falls; Z85.46 Personal history of malignant neoplasm of prostate; Z86.12 Personal history of poliomyelitis; Z88.0 Allergy status to penicillin
CPT/HCPCS: 70450; 72072; 72100; 72125; 99284

== ENCOUNTER → 2019-09-07 10:57 | Outpatient (CLI) | payer MEDICARE, SELFPAY ==
[2019-09-07 10:23] VITALS: BMI 24.9
[2019-09-07 13:22] LABS: ALB/GLOB Ratio 1.2 RATIO (0.9-2.4); AST(SGOT) 23 U/L (15-37); Alanine Aminotransfer ALT/SGPT 46 U/L (16-61); Albumin, Serum 3.8 g/dL (3.2-5.0); Alkaline Phosphatase 50 U/L (45-117); Anion Gap 7 (5-15); BUN 17 mg/dL (7-18); BUN/Creat Ratio 28.3 RATIO (10-20); Calcium,Total 8.9 mg/dL (8.5-10.1); Chloride 104 mmol/L (98-107); EST Glomerular Filtration Rate 142 mL/min (>60); Est Glom Filt Rate - Afr Amer 171 mL/min (>60); Globulin 3.3 g/dL (2.2-4.2); Glucose 91 mg/dL (74-106); Potassium 4.2 mmol/L (3.5-5.1); Protein, Total 7.1 g/dL (6.4-8.2); Sodium Level 140 mmol/L (136-145)
[2019-09-07 13:23] LABS: Vitamin D,25 Hydroxy 55.8 ng/mL (29.95-100.01)
== END ==
PROVIDERS: Family Provider Family Medicine; PCP Family Medicine; Visit Provider Family Medicine
DX: I10 Essential (primary) hypertension (principal); M81.8 Other osteoporosis without current pathological fracture
CPT/HCPCS: 36415; 80053; 82306

== ENCOUNTER → 2020-08-23 10:03 | Outpatient (CLI) | payer MEDICARE, SELFPAY ==
[2020-08-23 09:12] VITALS: BMI 25.5
[2020-08-23 12:28] LABS: Vitamin D,25 Hydroxy 36.3 ng/mL
[2020-08-23 12:35] LABS: AST(SGOT) 15 U/L (15-37); Alanine Aminotransfer ALT/SGPT 43 U/L (16-61); Albumin, Serum 3.7 g/dL (3.2-5.0); Alkaline Phosphatase 59 U/L (45-117); Anion Gap 2 (5-15); BUN 23 mg/dL (7-18); BUN/Creat Ratio 37.9 RATIO (10-20); Chloride 110 mmol/L (98-107); Cholesterol 197 mg/dL (200); Creatinine, Serum 0.61 mg/dL (0.70-1.30); EST Glomerular Filtration Rate 139 mL/min (>60); Est Glom Filt Rate - Afr Amer 169 mL/min (>60); Globulin 3.6 g/dL (2.2-4.2); Glucose 96 mg/dL (74-106); High Density Lipoprotein 83 mg/dL; Potassium 3.9 mmol/L (3.5-5.1); Protein, Total 7.3 g/dL (6.4-8.2); Sodium Level 141 mmol/L (136-145); Triglycerides 71 mg/dL; Very Low Density Lipoprotein 14 mg/dL (5-40)
== END ==
PROVIDERS: PCP Family Medicine; Referring Provider Family Medicine; Visit Provider Family Medicine
DX: I10 Essential (primary) hypertension (principal); M81.0 Age-related osteoporosis without current pathological fracture
CPT/HCPCS: 36415; 80053; 80061; 82306

== ENCOUNTER → 2020-10-04 10:40 | Outpatient (CLI) | payer MEDICARE, SELFPAY ==
[2020-08-23 09:12] VITALS: BMI 25.5
--- NOTE | 2020-10-04 10:56 | BD_ITS ---
STUDY: DUAL ENERGY X-RAY ABSORPTIOMETRY / DXA REASON FOR EXAM: Male, 70 years old. HX OF PROSTATE REMOVED -- TAKES HCTZ -- TAKES CALCIUM AND MULTIVITAMIN -- CURRENTLY ON PROLIA x4-5 YRS, FOSAMAX PRIOR -- DOES LITTLE EXERCISE -- FAMILY HX OF OSTEO -- HX OF BILATERAL LEG FX''S -- MERYL OF 1.5 INCHES TECHNIQUE: Bone Mineral Density (BMD) measurements of lumbar spine and bilateral hips were obtained. COMPARISON: Comparison is made with prior study dated 02/17/2018. FINDINGS: Lumbar Spine (L1-L4): g/cm2 (0.988) / T-score (-2.1) / Z-score (-1.6) Findings are suggestive of osteopenia with a high fracture risk. Left Femur Total: g/cm2 (0.567) / T-score (-3.7) / Z-score (-3.0) Left Femoral Neck: g/cm2 (0.599) / T-score (-3.6) / Z-score (-2.4) Right Femur Total: g/cm2 (0.516) / T-score (-4.1) / Z-score (-3.3) Right Femoral Neck: g/cm2 (0.551) / T-score (-4.0) / Z-score (-2.7) The T-Scores on the most recent prior examination were: Lumbar Spine (L1-L4): There has been improvement of bone density since the previous examination. Left Femur Total: which represents an improvement of 5.8%. Right Femur Total: which represents an improvement of 4.8%. BD/Dexa Bone Density Study IMPRESSION: The patient is considered osteoporotic as outlined below according to World [employer] Organization (WHO) criteria with a high fracture risk. There has been improvement of bone density since the previous examination. Reference Information: The T-score is the number of standard deviations above or below the standard which is normal for young adults at their peak bone mineral density. The World Health Organization (WHO) interprets the T-scores as follows: Above -1 Normal bone density Between -1 and -2.5 Osteopenia Equal to / or below -2.5 Osteoporosis As a practical clinical guideline, osteopenia may be graded as follows: Mild -1 through -1.5 Moderate -1.6 through -2.0 Severe -2.1 through -2.4 The Z-score is the number of standard deviations above or below age-matched controls. A Z-score of less than -1.5 would be considered abnormal. References: 1. NIH Osteoporosis and Related Bone Diseases www osteo.org 2. International Society for Clinical Densitometry www iscd.org 3. National Osteoporosis Foundation www nof.org Electronically Signed: Michael Perez, at 15:03 EST , Service support ,
== END ==
PROVIDERS: PCP Family Medicine; Referring Provider Family Medicine; Visit Provider Family Medicine
DX: M81.0 Age-related osteoporosis without current pathological fracture (principal)
CPT/HCPCS: 77080

== ENCOUNTER 2020-12-19 11:21 | Outpatient (RCR) | payer MEDICARE, SELFPAY ==
[2020-08-23 09:12] VITALS: BMI 25.5
[2020-12-19] MEDS: COVID-19 VACC, MRNA(PFIZER)/PF 30 MCG/0.3 ML SYRINGE IM (16:05)
[2021-01-09] MEDS: COVID-19 VACC, MRNA(PFIZER)/PF 30 MCG/0.3 ML SYRINGE IM (15:55)
== END 2021-03-20 23:59 ==
LOC: IMMUN 11:21
PROVIDERS: PCP Family Medicine; Referring Provider Family Medicine; Visit Provider Family Medicine
DX: Z23 Encounter for immunization (principal)
CPT/HCPCS: 0001A; 0002A; 91300

== ENCOUNTER → 2021-02-21 10:08 | Outpatient (CLI) | payer MEDICARE, SELFPAY ==
[2021-02-21 09:06] VITALS: BMI 23.9
--- NOTE | 2021-02-21 10:13 | RAD_ITS ---
STUDY: X-RAY - PELVIS AND RIGHT HIP REASON FOR EXAM: Male, 70 years old. Chronic right hip pain. TECHNIQUE: 3 views of the pelvis and hip. COMPARISON: Comparison is made with prior examination dated 09/23/2012. FINDINGS: There is dextroscoliosis of the lumbar spine. There is a non-specific bowel gas pattern. Surgical clips are seen in the pelvis. Normal bilateral iliac wings, sacroiliac joints and visualized sacrum. Normal bilateral superior and inferior pubic rami. Normal pubic symphysis. Normal bilateral ischial tuberosities. Normal visualized femoral head. Normal acetabulum. There is mild articular joint space narrowing of the hip. RAD/HIP, UNI W/ Pelvis 2-3 Views IMPRESSION: Dextroscoliosis of the lumbar spine. Mild degree of bony joint space narrowing of the hip joints bilaterally. Electronically Signed: Michael Perez MD at 9:27 EDT , Service support ,
== END ==
PROVIDERS: PCP Family Medicine; Referring Provider Family Medicine; Visit Provider Family Medicine
DX: M25.551 Pain in right hip (principal); G89.29 Other chronic pain
CPT/HCPCS: 73502

== ENCOUNTER → 2021-08-22 10:11 | Outpatient (CLI) | payer MEDICARE, SELFPAY ==
[2021-08-22 12:51] LABS: AST(SGOT) 23 U/L (15-37); Alanine Aminotransfer ALT/SGPT 33 U/L (16-61); Albumin, Serum 3.7 g/dL (3.2-5.0); Alkaline Phosphatase 54 U/L (45-117); Anion Gap 7 (5-15); BUN 23 mg/dL (7-18); Calcium,Total 9.3 mg/dL (8.5-10.1); Chloride 106 mmol/L (98-107); Cholesterol 195 mg/dL (200); Creatinine, Serum 0.59 mg/dL (0.70-1.30); EST Glomerular Filtration Rate 144 mL/min (>60); Est Glom Filt Rate - Afr Amer 174 mL/min (>60); Globulin 3.6 g/dL (2.2-4.2); Glucose 97 mg/dL (74-106); High Density Lipoprotein 84 mg/dL; Potassium 3.8 mmol/L (3.5-5.1); Protein, Total 7.3 g/dL (6.4-8.2); Sodium Level 140 mmol/L (136-145); Triglycerides 56 mg/dL; Very Low Density Lipoprotein 11 mg/dL (5-40)
== END ==
PROVIDERS: PCP Family Medicine; Referring Provider Family Medicine; Visit Provider Family Medicine
DX: I10 Essential (primary) hypertension (principal)
CPT/HCPCS: 36415; 80053; 80061

== ENCOUNTER → 2022-08-27 | Outpatient (CLI) | payer MEDICARE, SELFPAY ==
[2022-08-27 12:15] LABS: Vitamin D,25 Hydroxy 46.1 ng/mL
[2022-08-27 12:19] LABS: ALB/GLOB Ratio 1.1 RATIO (0.9-2.4); AST(SGOT) 17 U/L (15-37); Alanine Aminotransfer ALT/SGPT 29 U/L (16-61); Albumin, Serum 3.7 g/dL (3.2-5.0); Alkaline Phosphatase 50 U/L (45-117); Anion Gap 6 (5-15); BUN 21 mg/dL (7-18); BUN/Creat Ratio 35.6 RATIO (10-20); Calcium,Total 8.9 mg/dL (8.5-10.1); Chloride 107 mmol/L (98-107); Cholesterol 185 mg/dL (200); Creatinine, Serum 0.59 mg/dL (0.70-1.30); EST Glomerular Filtration Rate 143 mL/min (>60); Est Glom Filt Rate - Afr Amer 173 mL/min (>60); Globulin 3.5 g/dL (2.2-4.2); Glucose 93 mg/dL (74-106); High Density Lipoprotein 84 mg/dL; PSA,Total- Diagnostic 0.02 ng/mL (0.0-4.0); Protein, Total 7.2 g/dL (6.4-8.2); Sodium Level 141 mmol/L (136-145); Triglycerides 61 mg/dL; Very Low Density Lipoprotein 12 mg/dL (5-40)
== END | disposition home or self-care (01) ==
LOC: BIMLAB 10:37
PROVIDERS: PCP Family Medicine; Referring Provider Family Medicine; Visit Provider Family Medicine
DX: M81.8 Other osteoporosis without current pathological fracture (principal); Z85.46 Personal history of malignant neoplasm of prostate; I10 Essential (primary) hypertension
CPT/HCPCS: 36415; 80053; 80061; 82306; 84153

== ENCOUNTER → 2023-03-12 | Outpatient (CLI) | payer MEDICARE, SELFPAY ==
--- NOTE | 2023-03-12 15:00 | LES_PTH ---
PATIENT: OSCAR HARGROVE LOC: [facility] U#:[id number] AGE/SX: 72/M ROOM: RE03/12/[address]: Dr. Jamar Chance DO : 1950 BED: DIS: 03/12/2023 SPEC #: [id number] RECD: 03/12/23 16:45 STATUS: MELVINA ZHAO #: [id number] JOSE: 03/12/23 15:[address]: Jamar Chance DEPT: SURGICAL PATHOLOGY RECD BY: Anita Gutierrez Tissues: Skin of face, NOS Procedures: Surgery Specimen Level IV HEADER OPERATION: Lesion removal PRE-OP DIAGNOSIS: Skin lesion of cheek TISSUE SUBMITTED: Skin lesion of cheek MICROSCOPIC DIAGNOSIS Skin lesion of cheek, shave biopsy: Basal cell carcinoma. Actinic keratosis. See comment. JOHAN:yovanny 03/14/2023 COMMENT The tumor is present at the deep margin of the specimen. This case has been reviewed in consultation with Dr. Dia who concurs with the above diagnosis. MICROSCOPIC DESCRIPTION Slides are reviewed. GROSS DESCRIPTION Received in fixative is one container labeled with the patient's name and designated left cheek. The specimen consists of a shave biopsy of ramirez-white skin measuring 0.8 x 0.7 x 0.1 cm. The specimen is inked, serially sectioned and submitted entirely in one cassette. / SJ:rg 03/13/2023 TC:0 [facility]: [id number]
== END | disposition home or self-care (01) ==
PROVIDERS: PCP Family Medicine; Visit Provider Family Medicine
DX: L98.9 Disorder of the skin and subcutaneous tissue, unspecified (principal)
CPT/HCPCS: 88305

== ENCOUNTER 2023-03-18 22:25 | Emergency (ER) | payer MEDICARE, SELFPAY ==
[2023-03-18 22:26] VITALS: BP 157/83; PULSE 83; RESP 15; TEMP 38.5; O2SAT 95
[2023-03-18 22:54] VITALS: BMI 22.9
--- NOTE | 2023-03-18 22:56 | RAD_ITS ---
INDICATION: fever, cough EXAMINATION/TECHNIQUE: X-RAY - XR Chest 1 View COMPARISON: FINDINGS: LINES/DEVICES: None. LUNGS: No consolidation, edema or effusion. No pneumothorax. MEDIASTINUM AND CARDIOVASCULAR STRUCTURES: Cardiac silhouette not enlarged. Central airways and mediastinal contour are unremarkable. BONES AND SOFT TISSUES: Degenerative vertebral changes with a severe scoliosis. RAD/Chest 1 View (Portable) IMPRESSION: No radiographic evidence of acute cardiopulmonary disease. Electronically Signed: Reji Pendleton DO at 23:37 EDT ,
--- NOTE | 2023-03-18 22:56 | EKG12_ITS ---
Test Reason : DYSRHYTHMIA Blood Pressure : / mmHG Vent. Rate : 073 BPM Atrial Rate : 073 BPM P-R Int : 204 ms QRS Dur : 100 ms QT Int : 354 ms P-R-T Axes : 046 077 045 degrees QTc Int : 389 ms Normal sinus rhythm Confirmed by LEON DENG MD ([id number]), videotape editor ILYA LAZRA ([id number]) on 03/21/2023 8:02:41 AM Referred By: SHAVON Confirmed By:LEON DENG MD
[2023-03-18 23:02] VITALS: TEMP 38.4
[2023-03-18] MEDS: Acetaminophen 325 MG Tablet 650 MG PO (23:19)
[2023-03-18 23:21] LABS: Absolute Lymphocyte Count 0.82 X10^3/uL (0.83-4.51); Absolute Neutrophil Count 5.5 X10^3/uL (2.0-7.7); Basophil# 0.03 X10^3/uL; Basophil% 0.4 % (0-1); Eosinophil# 0.17 X10^3/uL; Eosinophils% 2.3 % (0-5); Hematocrit 43.2 % (40-54); Hemoglobin 14.2 g/dL (13.0-16.5); Lymphocyte # 0.82 X10^3/ul (0.83-4.51); Lymphocyte % 11.3 % (19-41); Mean Corp Hgb Conc 32.9 g/dL (32-36); Mean Corpuscular Volume 88.2 fL (80-94); Mean Platelet Vol. 9.8 fl (6.2-12.0); Monocyte# 0.69 X10^3/uL; Monocyte% 9.5 % (0-10); NRBC Flagged by Analyzer 0 % (0-5); Neutrophil # 5.51 X10^3/uL (2.7-7.7); Neutrophil % 76.2 % (47-70); Platelet Count 186 K/mm3 (150-450); RBC Distribution Width CV 13.4 % (11.6-14.6); RBC Distribution Width SD 43.4 fl (35.1-43.9); White Blood Count 7.2 K/mm3 (4.4-11.0)
[2023-03-18 23:30] VITALS: BP 147/81; PULSE 72; RESP 16; TEMP 37.9; O2SAT 97
[2023-03-18 23:37] LABS: Prothrombin Time (Protime)PT. 13.6 SECONDS (11.7-14.9)
[2023-03-18 23:38] LABS: Partial Thromboplast Time 27.8 Seconds (24.1-36.2)
[2023-03-18 23:42] LABS: ALB/GLOB Ratio 0.9 RATIO (0.9-2.4); AST(SGOT) 14 U/L (15-37); Alanine Aminotransfer ALT/SGPT 26 U/L (16-61); Albumin, Serum 3.4 g/dL (3.2-5.0); Alkaline Phosphatase 53 U/L (45-117); Anion Gap 5 (5-15); BUN 23 mg/dL (7-18); BUN/Creat Ratio 27.7 RATIO (10-20); Chloride 107 mmol/L (98-107); Creatinine, Serum 0.83 mg/dL (0.70-1.30); EST Glomerular Filtration Rate 96 mL/min (>60); Est Glom Filt Rate - Afr Amer 117 mL/min (>60); Estimated Creatinine Clearance 63.79 ml/min; Globulin 3.6 g/dL (2.2-4.2); Glucose 118 mg/dL (74-106); Potassium 3.6 mmol/L (3.5-5.1); Sodium Level 141 mmol/L (136-145)
--- NOTE | 2023-03-18 23:42 | EDS_ITS ---
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 Patient states today he developed a fever in his forehead. It was gradual in onset. He says he cannot get rid of it. He took Tylenol at noon and a dose of Motrin prior to arrival. He notes he is currently feeling better. He has had associated runny nose and sore throat. Denies any nausea vomiting or other GI symptoms. Denies any urinary symptoms. Does also note that he noticed a rash on his right chest a couple days ago. States it is itchy/burning and he tried Benadryl cream for it. Denies any sick contacts. Denies associated chest pain, difficulty breathing or shortness of breath. No other complaints or concerns at this time. [facility] Medical History Difficulty balancing when standing Fever History of prostate cancer Hypertension Limb weakness Osteoporosis Post-polio syndrome Severe headache Home Medications disability placard #1 ea 12/22/20 [Rx Last Taken Unknown] Transport chair #1 ea 02/20/22 [Rx Last Taken Unknown] Walker #1 ea 08/27/22 [Rx Last Taken Unknown] losartan 100 mg-hydrochlorothiazide 12.5 mg tablet 1 tab PO QDAY #90 tabs 12/19/22 [Rx Last Taken Unknown] propranolol 60 mg capsule,24 hr,extended release 60 mg PO DAILY #30 caps 03/06/23 [Rx Last Taken Unknown] valacyclovir 1 gram tablet (Valtrex) 1,000 mg PO TID #21 tabs 03/19/23 [Rx Last Taken Unknown] Allergy/AdvReac Type Severity Reaction Status Date / Time penicillin G Allergy Severe hives Verified 03/18/23 22:30 pentazocine [From Teddy] AdvReac Severe dizziness Verified 03/18/23 22:30 Family History Father Heart disease Cancer skin, Colon cancer Mother Cancer skin Brother Thyroid disorder Cancer skin Other Hypertension Surgical History History of appendectomy Social History Smoking Status: Never smoker alcohol intake: never substance use type: does not use what type of physical activity do you participate in: none ROS ROS ED Constitutional Constitutional ED: Reports chills and fever(s) Eyes Eyes: Denies blurry vision or change in vision ENT ENT ED: Reports rhinorrhea and sore throat; Denies ear pain Cardiovascular Cardiovascular: Denies chest pain or palpitations Respiratory/Chest Respiratory/Chest: Denies cough or dyspnea Gastrointestinal Gastrointestinal: Denies abdominal pain, diarrhea, nausea or vomiting Genitourinary Genitourinary ED: Denies dysuria or hematuria Musculoskeletal Musculoskeletal: Denies arthralgias, myalgias or neck pain Integumentary Reports rash Neurologic Neurologic: Reports headache(s); Denies paresthesias or weakness Psychiatric Psychiatric: Denies anxiety Hematologic/Lymphatic Hematologic/Lymphatic: Denies easy bleeding or easy bruising EXAM Physical Exam Const Vital Signs: 03/18/23 22:26 03/18/23 22:54 03/18/23 23:02 Temperature 101.3 F H 101.2 F H Temperature Source Temporal Oral Pulse Rate 83 Respiratory Rate 15 Respiratory Effort Normal Non-Labored Respiratory Pattern Normal Blood Pressure 157/83 H Blood Pressure Mean 107 Pulse Ox 95 Oxygen Delivery Method Room Air 03/18/23 23:19 03/18/23 23:30 03/19/23 00:00 Temperature 100.3 F H 100.9 F H Temperature Source Oral Temporal Pulse Rate 72 74 Respiratory Rate 16 16 Respiratory Effort Respiratory Pattern Blood Pressure 147/81 H 138/74 H Blood Pressure Mean 103 95 Pulse Ox 97 97 Oxygen Delivery Method Room Air Room Air Room Air Positive well nourished and well developed General Appearance ED: well developed and NAD HEENT Reports TM's clear and moist mucous membranes HEENT Narrative: Normal oropharynx, no significant rhinorrhea Negative for trauma Tympanic Membrane ED: Yes TM's clear Eyes PERRL and EOMs intact bilaterally Neck supple Neck Narrative: No nuchal rigidity General: Negative for tenderness Chest Wall inspection of chest normal and palpation of chest normal Resp normal respiratory effort and clear to auscultation bilaterally Cardio regular rate, regular rhythm and no murmurs GI normal to inspection, nondistended, normoactive bowel sounds and non-tender Back/Spine no CVA tenderness Extremity Extremity Narrative: Mild pitting edema of the lower extremities. Atrophy with decreased tone of the lower extremities Neuro oriented x3 Sensorium / Orientation: alert Motor Exam: general weakness Psych mental status grossly normal Skin Skin Narrative: Erythematous and vesicular rash in the approximately T6 distribution of the left anterior and posterior chest consistent with shingles MDM MDM MDM Narrative Medical decision making narrative: Patient is evaluated for fever and headache. He also developed a rash couple days ago. Upon arrival patient is febrile. He is given Tylenol in the ER for his fever. He otherwise appears nontoxic. He is complaining of a frontal headache but does not have any meningeal signs. Headache is not consistent with subarachnoid hemorrhage or meningitis. There is been no report of any falls or injuries. Sepsis work-up is obtained. In addition on physical exam he does have findings distant with acute shingles of his right chest wall. While his physical exam and HPI is not consistent with meningeal encephalitis and he does not have any neck pain or severe headache which be more consistent with a viral meningitis I did speak with infectious disease telephone operator chief as there is no other obvious source of infection. It is possible he could have viral illness as he does have associated sore throat and nasal congestion. Dr. Ramey, do not think patient would require admission for IV antivirals or an LP especially given how well he is appearing. We will start him on antivirals for his shingles. Patient is not having significant pain for the shingles I do not think he requires steroids. Patient is given strict return precautions. Patient's EKG was read as inferior STEMI however I disagree with this read. Patient is not having any chest pain. His high-sensitivity troponin was added on just because of this EKG read but it was normal at 5. Patient given strict return precautions. Patient and agreeable with this plan of care. Patient is have improvement of his headache with fever control emergency room. Counseled to continue alternating ibuprofen and Tylenol and push fluids over the next few days. Lab Data Attestation: I reviewed the patient's lab results. Labs: Laboratory Results - last 24 hr 03/18/23 03/18/23 03/18/23 23:15 23:15 23:15 WBC 7.2 RBC 4.90 Hgb 14.2 Hct 43.2 MCV 88.2 MCH 29.0 MCHC 32.9 RDW Std Deviation 43.4 RDW Coeff of Lena 13.4 Plt Count 186 MPV 9.8 Immature Gran % (Auto) 0.300 Neut % (Auto) 76.2 H Lymph % (Auto) 11.3 L [place] % (Auto) 9.5 Eos % (Auto) 2.3 Baso % (Auto) 0.4 Absolute Neuts (auto) 5.5 Absolute Lymphs (auto) 0.82 L Nucleated RBC % 0 PT 13.6 INR 1.0 APTT 27.8 Sodium 141 Potassium 3.6 Chloride 107 Carbon Dioxide 29.0 Anion Gap 5 BUN 23 H Creatinine 0.83 Estim Creat Clear Calc 63.79 Est GFR (MDRD) Af Amer 117 Est GFR (MDRD) Non-Af 96 BUN/Creatinine Ratio 27.7 H Glucose 118 H Lactic Acid Calcium 9.0 Total Bilirubin 0.60 AST 14 L ALT 26 Alkaline Phosphatase 53 Troponin I High Sens Total Protein 7.0 Albumin 3.4 Globulin 3.6 Albumin/Globulin Ratio 0.9 Urine Color Urine Clarity Urine pH Ur Specific [place] Urine Protein Urine Glucose (UA) Urine Ketones Urine Occult Blood Urine Nitrite Urine Bilirubin Urine Urobilinogen Ur Leukocyte Esterase Urine RBC Urine WBC Ur Squamous Epith Cells Urine Bacteria Urine Mucus 03/18/23 03/18/23 03/18/23 23:15 23:15 23:55 WBC RBC Hgb Hct MCV MCH MCHC RDW Std Deviation RDW Coeff of Lena Plt Count MPV Immature Gran % (Auto) Neut % (Auto) Lymph % (Auto) [place] % (Auto) Eos % (Auto) Baso % (Auto) Absolute Neuts (auto) Absolute Lymphs (auto) Nucleated RBC % PT INR APTT Sodium Potassium Chloride Carbon Dioxide Anion Gap BUN Creatinine Estim Creat Clear Calc Est GFR (MDRD) Af Amer Est GFR (MDRD) Non-Af BUN/Creatinine Ratio Glucose Lactic Acid 1.4 Calcium Total Bilirubin AST ALT Alkaline Phosphatase Troponin I High Sens 5 Total Protein Albumin Globulin Albumin/Globulin Ratio Urine Color Yellow Urine Clarity Clear Urine pH 7.0 Ur Specific [place] 1.015 Urine Protein 15 H Urine Glucose (UA) Normal Urine Ketones Negative Urine Occult Blood 25 H Urine Nitrite Negative Urine Bilirubin Negative Urine Urobilinogen Normal Ur Leukocyte Esterase Negative Urine RBC 0-5 SEEN Urine WBC 0 SEEN Ur Squamous Epith Cells 0 SEEN Urine Bacteria 0 SEEN Urine Mucus 0 SEEN Radiography Chest X-Ray - ED: 1 View, Read by ED Physician, Read by Radiologist and No Acute Disease Diagnostic Testing: Clinical Impression(s) from Imaging Studies Chest X-Ray 03/18/23 22:56 IMPRESSION: No radiographic evidence of acute cardiopulmonary disease. Electronically Signed: Reji Pendleton DO at 23:37 EDT Reading Location ID and State: [facility] / [place] Tel [phone], Service support , Rhythm Strip Rhythm Strip: Sinus Rhythm Rate: 73 Ectopy: None EKG Initial EKG: Attestation: I personally reviewed and interpreted this EKG as follows: Interpretation: Sinus Rhythm Comments: Normal sinus rhythm at a rate of 73 bpm Normal axis Normal intervals Normal ST segments Computer interpretation of acute infarct/inferior injury/STEMI in the inferior leads however I disagree with this reading Management Discussion w/another healthcare provider: Farm Contractor Discharge Plan Triage Chief Complaint: General Illness Other Complaint: Fever ED Provider: Audrey Gonzalez Dx/Rx/DC Orders Clinical Impression: Shingles, Fever, Headache Instructions: ED FUO Adult, ED Shingles (Herpes Zoster) Prescriptions: New valacyclovir [Valtrex] 1 gram tablet 1,000 mg PO TID Qty: 21 0RF No Action (DME) Transport chair See Rx Instructions .Route .MEDSUPPLY Qty: 1 0RF Rx Instructions: As directed (DME) Walker See Rx Instructions .Route .MEDSUPPLY Qty: 1 0RF Rx Instructions: Walker with 4 wheels, seat and hand brakes propranolol 60 mg capsule,extended release 24 hr 60 mg PO DAILY Qty: 30 3RF (DME) disability placard See Rx Instructions .ROUTE .MEDSUPPLY Qty: 1 0RF Rx Instructions: As directed, Length of time: 5 years losartan-hydrochlorothiazide 100-12.5 mg tablet 1 tab PO QDAY Qty: 90 3RF Primary Care Provider: Jamar Chance Referrals: Jamar Chance DO [Primary Care Provider] - Activity Restrictions/Additional Instructions: The exact cause of your fever is not clear at this time. Your work-up was largely normal. You have shingles. Please take the entire course of antivirals as prescribed. If you develop worsening headache, weakness, concerns for dehydration or neck stiffness please return to the emergency room. Continue to alternate ibuprofen and Tylenol for fever control. Push fluids. Disposition Disposition: Home, Self Care
[2023-03-18 23:45] LABS: Lactic Acid 1.4 mmol/L (0.4-1.9)
[2023-03-19] VITALS: BP 138/74; PULSE 74; RESP 16; TEMP 38.3; O2SAT 97
[2023-03-19 00:02] LABS: Bacteria 0 SEEN /hpf (None Seen); Mucous, Urine 0 SEEN /hpf (<or=2+); Squamous Epithelial Cells - UA 0 SEEN /hpf (0-5); White Blood Cells 0 SEEN /hpf (0-5)
[2023-03-19 00:03] LABS: Color, Urine Yellow (Yellow); Glucose, Dipstick Normal (Normal); Ketone-Dipstick Negative (Negative); Leukocyte Esterase-Dipstick Negative /ul (Negative); Nitrite-Dipstick Negative (Negative); Occult Blood-Urine 25 /ul (Negative); Protein-Dipstick 15 mg/dl (Negative); Specific Gravity, Urine 1.015 (1.002-1.030); Urine Bilirubin Dipstick Negative (Negative); Urine Clarity Clear (Clear); Urine Urobilinogen Normal (Normal)
[2023-03-19 00:19] LABS: Red Blood Cells-Urine 0-5 SEEN /hpf (0-5)
[2023-03-19 00:40] LABS: Troponin-I HS 5 pg/mL (3.0-78.0)
[2023-03-19 02:24] VITALS: PULSE 64; RESP 18; TEMP 37.9; O2SAT 100
[2023-03-19] MEDS: Acyclovir 800 MG Tablet PO (02:54)
== END 2023-03-19 02:57 | disposition home or self-care (01) ==
PROVIDERS: Emergency Provider Emergency Medicine; PCP Family Medicine; Visit Provider Emergency Medicine
DX: B02.9 Zoster without complications (principal); I10 Essential (primary) hypertension; R51.9 Headache, unspecified; J02.9 Acute pharyngitis, unspecified; Z85.46 Personal history of malignant neoplasm of prostate; M81.0 Age-related osteoporosis without current pathological fracture; G14 Postpolio syndrome; R29.898 Other symptoms and signs involving the musculoskeletal system
CPT/HCPCS: 71045; 80053; 81001; 83605; 84484; 85025; 85610; 85730; 87040; 87086; 87088; 87811; 93005; 99285; A4216

== ENCOUNTER → 2023-09-10 | Outpatient (CLI) | payer MEDICARE, SELFPAY ==
[2023-09-10 13:01] LABS: AST(SGOT) 16 U/L (15-37); Alanine Aminotransfer ALT/SGPT 25 U/L (16-61); Albumin, Serum 3.6 g/dL (3.2-5.0); Alkaline Phosphatase 51 U/L (45-117); Anion Gap 4 (5-15); BUN 22 mg/dL (7-18); BUN/Creat Ratio 30.6 RATIO (10-20); Calcium,Total 8.8 mg/dL (8.5-10.1); Chloride 106 mmol/L (98-107); Cholesterol 198 mg/dL (200); Creatinine, Serum 0.72 mg/dL (0.70-1.30); EST Glomerular Filtration Rate 114 mL/min (>60); Est Glom Filt Rate - Afr Amer 137 mL/min (>60); Globulin 3.5 g/dL (2.2-4.2); Glucose 100 mg/dL (74-106); High Density Lipoprotein 73 mg/dL; Potassium 3.9 mmol/L (3.5-5.1); Protein, Total 7.1 g/dL (6.4-8.2); Sodium Level 140 mmol/L (136-145); Triglycerides 83 mg/dL; Very Low Density Lipoprotein 17 mg/dL (5-40)
== END | disposition home or self-care (01) ==
LOC: BIMLAB 09:51
PROVIDERS: PCP Family Medicine; Referring Provider Family Medicine; Visit Provider Family Medicine
DX: I10 Essential (primary) hypertension (principal); M81.0 Age-related osteoporosis without current pathological fracture
CPT/HCPCS: 36415; 80053; 80061

== ENCOUNTER → 2024-03-10 | Outpatient (CLI) | payer MEDICARE, SELFPAY ==
[2024-03-10 12:32] LABS: ALB/GLOB Ratio 1.2 RATIO (0.9-2.4); AST(SGOT) 17 U/L (15-37); Alanine Aminotransfer ALT/SGPT 22 U/L (16-61); Albumin, Serum 3.6 g/dL (3.2-5.0); Alkaline Phosphatase 52 U/L (45-117); Anion Gap 6 (5-15); BUN 20 mg/dL (7-18); BUN/Creat Ratio 32.5 RATIO (10-20); Calcium,Total 9.1 mg/dL (8.5-10.1); Chloride 106 mmol/L (98-107); Creatinine, Serum 0.62 mg/dL (0.70-1.30); EST Glomerular Filtration Rate 136 mL/min (>60); Est Glom Filt Rate - Afr Amer 164 mL/min (>60); Globulin 3.1 g/dL (2.2-4.2); Glucose 102 mg/dL (74-106); Potassium 3.9 mmol/L (3.5-5.1); Protein, Total 6.7 g/dL (6.4-8.2); Sodium Level 141 mmol/L (136-145)
== END | disposition home or self-care (01) ==
LOC: BIMLAB 09:48
PROVIDERS: PCP Family Medicine; Visit Provider Family Medicine
DX: I10 Essential (primary) hypertension (principal)
CPT/HCPCS: 36415; 80053

== ENCOUNTER → 2024-08-31 | Outpatient (CLI) | payer MEDICARE, SELFPAY ==
[2024-08-31 12:30] LABS: ALB/GLOB Ratio 1.1 RATIO (0.9-2.4); AST(SGOT) 26 U/L (15-37); Alanine Aminotransfer ALT/SGPT 27 U/L (16-61); Albumin, Serum 3.6 g/dL (3.2-5.0); Alkaline Phosphatase 47 U/L (45-117); Anion Gap 7 (5-15); BUN 26 mg/dL (7-18); BUN/Creat Ratio 40.7 RATIO (10-20); Calcium,Total 9.2 mg/dL (8.5-10.1); Chloride 106 mmol/L (98-107); Cholesterol 190 mg/dL (200); Creatinine, Serum 0.64 mg/dL (0.70-1.30); EST Glomerular Filtration Rate 130 mL/min (>60); Est Glom Filt Rate - Afr Amer 157 mL/min (>60); Globulin 3.3 g/dL (2.2-4.2); Glucose 97 mg/dL (74-106); High Density Lipoprotein 84 mg/dL; Potassium 3.7 mmol/L (3.5-5.1); Protein, Total 6.9 g/dL (6.4-8.2); Sodium Level 140 mmol/L (136-145); Triglycerides 67 mg/dL; Very Low Density Lipoprotein 13 mg/dL (5-40)
== END | disposition home or self-care (01) ==
LOC: BIMLAB 10:37
PROVIDERS: PCP Family Medicine; Visit Provider Family Medicine
DX: I10 Essential (primary) hypertension (principal)
CPT/HCPCS: 36415; 80053; 80061

== ENCOUNTER → 2025-03-15 | Outpatient (CLI) | payer MEDICARE, SELFPAY ==
--- NOTE | 2025-03-15 09:53 | BD_ITS ---
PROCEDURE: DEXA BONE DENSITY STUDY 03/15/2025 REASON FOR EXAM: OSTEOPOROSIS M, age 74 y/o . TECHNIQUE: DXA scan of sites with data reported below. Scanner utilized: [employer] W. REFERENCE LINKS: [facility] Adult Positions COMPARISON: DEXA on 10/04/2020 FINDINGS: BMD and T-SCORES Lumbar spine: 0.957 g/cm2, T-score -1.0 Levels: L1 through L3 Change from prior: Dissimilar scan types/analysis methods, showing. Left femoral neck: 0.488 g/cm2, T-score -3.2 Femoral neck comparison data not recommended for monitoring change. Prior T-score -3.6 Left total hip: 0.556 g/cm2, T-score -3.2 Change from prior: Dissimilar scan types/analysis methods, showing. Right femoral neck: 0.461 g/cm2, T-score -3.4 Femoral neck comparison data not recommended for monitoring change. Prior T-score -4.0 Right total hip: 0.548 g/cm2, T-score -3.2 Change from prior: Dissimilar scan types/analysis methods, showing. The World Health Organization has defined the following categories based on bone density: Normal bone density: T-score equal to or greater than -1.0 Osteopenia: T-score between -1.0 and -2.5 Osteoporosis: T-score equal to or less than -2. BD/Dexa Bone Density Study IMPRESSION: OSTEOPOROSIS. Reading Location: [place]
== END | disposition home or self-care (01) ==
LOC: OPBD 09:38
PROVIDERS: PCP Family Medicine; Referring Provider Family Medicine; Visit Provider Family Medicine
DX: M81.0 Age-related osteoporosis without current pathological fracture (principal)
CPT/HCPCS: 77080

== ENCOUNTER → 2025-08-24 | Outpatient (CLI) | payer MEDICARE, SELFPAY ==
[2025-08-24 13:03] LABS: AST(SGOT) 20 U/L (<=37); Alanine Aminotransfer ALT/SGPT 17 U/L (<=46); Albumin, Serum 4.3 g/dL (3.4-4.8); Alkaline Phosphatase 53 U/L (40-129); Anion Gap 10 (5-15); BUN 20 mg/dL (4-19); BUN/Creat Ratio 32.2 RATIO (10-20); Calcium,Total 9.4 mg/dL (7.6-11.0); Carbon Dioxide 27.9 mmol/L (21.0-32.0); Chloride 103 mmol/L (98-108); Cholesterol 188 mg/dL (<=200); Globulin 2.9 g/dL (2.2-4.2); Glucose 104 mg/dL (70-99); Low Density Lipoprotein Calc. 105 mg/dL; Potassium 3.9 mmol/L (3.3-5.1); Triglycerides 81 mg/dL; Very Low Density Lipoprotein 16 mg/dL (5-40); cholesterol:hdl ratio screen 2.76
== END | disposition home or self-care (01) ==
LOC: MTLAB 10:05
PROVIDERS: PCP Family Medicine; Referring Provider Family Medicine; Visit Provider Family Medicine
DX: I10 Essential (primary) hypertension (principal)
CPT/HCPCS: 36415; 80053; 80061